=== PATIENT | female | born 1965 | race Caucasian/White ===

== ENCOUNTER 2021-08-07 10:01 | Emergency (ER) | payer OTHER ==
[~2021-08-07] VITALS: Ht 165.1 cm; Wt 56.2 kg
[2021-08-07] MEDS ORDERED: PROGESTERONE200 MG PO (10:22)
== END 2021-08-07 17:33 | disposition home or self-care (01) ==
LOC: ER 10:01
DX: N20.0 Calculus of kidney (principal); R10.84 Generalized abdominal pain